=== PATIENT | female | born 1965 | race Caucasian/White ===

== ENCOUNTER 2022-09-18 08:52 | Emergency (ER) | payer OTHER ==
[~2022-09-18] VITALS: Ht 157.5 cm; Wt 59.0 kg
[~2022-09-18 08:52] MED LIST: GLUCOTROL10 MG PO; METFORMIN HYDRO25 GM MC
[2022-09-18] MEDS ORDERED: SYNJARDY 12.5-1 EACH PO (09:07)
[2022-09-18] MEDS ORDERED: JANUVIA25 MG PO (09:07)
[2022-09-18] MEDS ORDERED: ROSUVASTATIN CA40 MG PO (09:08)
[2022-09-18] MEDS ORDERED: PEPCID AC20 MG (09:09)
[2022-09-18] MEDS ORDERED: AFRIN15 ML NASAL (12:37)
[2022-09-18] MEDS ORDERED: ANTIVERT25 M2 PO (12:37)
== END 2022-09-18 12:40 | disposition home or self-care (01) ==
LOC: ER 08:52
DX: H81.10 Benign paroxysmal vertigo, unspecified ear (principal)

== ENCOUNTER 2023-09-27 13:22 | Inpatient (IN) | payer OTHER ==
[~2023-09-27] VITALS: Ht 160 cm; Wt 65.8 kg
[~2023-09-27 13:22] MED LIST changes: +AFRIN15 ML NASAL; +ANTIVERT25 M2 PO; +JANUVIA25 MG PO; +PEPCID AC20 MG; +ROSUVASTATIN CA40 MG PO; +SYNJARDY 12.5-1 EACH PO
[2023-09-27 19:45] LABS: HEMOGLOBIN 13.5 g/dL (12.0-15.00); MEAN CELL VOLUME 81.2 fL (80.00-100.00); MEAN CORPUSCULAR HGB CONC 34.5 g/dl (32.0-36.0); PLATELET COUNT 235 K/uL (150-450); RED CELL DISTRIBUTION WIDTH 13.2 % (11.5-14.5)
[2023-09-27 20:02] LABS: INR 1.04; PARTIAL THROMBOPLASTIN TIME 27.7 SECONDS (22.0-34.0); PROTHROMBIN TIME 10.9 SECONDS (9.0-11.5)
[2023-09-27 20:06] LABS: ALBUMIN 4.3 gm/dL (3.4-5.0); BILIRUBIN TOTAL 0.6 mg/dL (0.3-1.2); CALCIUM 9.8 mg/dL (8.5-10.1); CREATININE SERUM 0.68 mg/dL (0.55-1.02); GFR 88.87; GLOBULINA 3.8 G/DL (2.4-3.5); MAGNESIUM 1.7 mg/dL (1.8-2.4); PHOSPHOROUS 3.4 mg/dL (2.5-4.9); POTASSIUM 3.52 mEq/L (3.5-5.1); TOTAL PROTEIN 8.1 gm/dL (6.4-8.2)
[2023-09-27 21:09] LABS: PH,URINE 5.5 (5.0-8.0); URINE APPEARANCE Clear; URINE BILIRRUBIN Negative (NEGATIVE); URINE BLOOD Negative; URINE COLOR Yellow; URINE GLUCOSE Negative (NEGATIVE); URINE LEUKOCYTE Negative; URINE NITRATE Negative; URINE PROTEIN Negative (NEGATIVE)
[2023-09-27 21:15] LABS: URINE BACTERIA 21.4 uL (0.0-1933); URINE EPITHELIAL CELLS 6.6 uL (0.0-38.8); URINE RBC 1.7 uL (0.0-20.8); URINE WBC 10.7 uL (0.0-23.2)
[2023-09-28] MEDS ORDERED: CIPRO500 MG PO (12:04)
[2023-09-28] MEDS ORDERED: PERCOCET 5-3251 EACH PO (12:04)
[2023-09-28] MEDS ORDERED: ASA325 M1 PO (12:04)
== END 2023-09-28 18:53 | disposition home or self-care (01) | DRG 488 ==
LOC: ER 13:22 → SURH 18:18
PROVIDERS: General Practice; ADMIT Orthopaedic Surgery; ATTEND Orthopaedic Surgery
PROC: 0QUD0JZ Supplement Right Patella with Synthetic Substitute, Open Approach (ICD-10-PCS; 2023-09-28)
PROC: 0QSD04Z Reposition Right Patella with Internal Fixation Device, Open Approach (ICD-10-PCS; principal; 2023-09-28 12:30)
DX: S82.041A Displaced comminuted fracture of right patella, initial encounter for closed fracture (principal); M25.061 Hemarthrosis, right knee; S80.01XA Contusion of right knee, initial encounter; Z20.822 Contact with and (suspected) exposure to COVID-19; W01.198A Fall on same level from slipping, tripping and stumbling with subsequent striking against other object, initial encounter; Y93.9 Activity, unspecified; Y92.009 Unspecified place in unspecified non-institutional (private) residence as the place of occurrence of the external cause; Y99.9 Unspecified external cause status

== ENCOUNTER 2024-03-31 10:43 | Outpatient (CLI) | payer OTHER ==
[~2024-03-31 10:43] MED LIST changes: +ASA325 M1 PO; +CIPRO500 MG PO; +PERCOCET 5-3251 EACH PO
== END 2024-03-31 10:49 | disposition home or self-care (01) ==
LOC: RAD 10:43
PROVIDERS: ATTEND General Practice
DX: S92.351A Displaced fracture of fifth metatarsal bone, right foot, initial encounter for closed fracture (principal); M17.11 Unilateral primary osteoarthritis, right knee

== ENCOUNTER 2025-04-09 10:59 | Emergency (ER) | payer OTHER ==
[~2025-04-09] VITALS: Ht 162.6 cm; Wt 68.0 kg
[2025-04-09] MEDS ORDERED: KETOROLAC TROMETHAMINE 60 MG VIAL IM STA (12:14)
[2025-04-09] MEDS ORDERED: ACETAMINOPHEN 500 MG GEL..CAP PO STA (12:15)
[2025-04-09] MEDS ORDERED: KETOROLAC TROMETHAMINE 60 MG VIAL IM ONE (12:21)
[2025-04-09] MEDS ORDERED: ACETAMINOPHEN 500 MG GEL..CAP PO ONE (12:21)
== END 2025-04-09 14:38 | disposition home or self-care (01) ==
LOC: ER 10:59
DX: S80.02XA Contusion of left knee, initial encounter (principal); S50.12XA Contusion of left forearm, initial encounter; S90.31XA Contusion of right foot, initial encounter; W18.39XA Other fall on same level, initial encounter; Y93.89 Activity, other specified; Y92.018 Other place in single-family (private) house as the place of occurrence of the external cause; Y99.9 Unspecified external cause status; Z88.0 Allergy status to penicillin; Z88.8 Allergy status to other drugs, medicaments and biological substances

== ENCOUNTER 2025-05-15 13:56 | Emergency (ER) | payer OTHER ==
[~2025-05-15] VITALS: Ht 157.5 cm; Wt 53.5 kg
[2025-05-15] MEDS ORDERED: KETOROLAC TROMETHAMINE 10 MG TABLET PO STA (16:08)
== END 2025-05-15 18:16 | disposition home or self-care (01) ==
LOC: ER 13:56
DX: G89.11 Acute pain due to trauma (principal); M25.561 Pain in right knee; M79.641 Pain in right hand; M25.572 Pain in left ankle and joints of left foot; T07.XXXA Unspecified multiple injuries, initial encounter; Z88.0 Allergy status to penicillin; Z88.5 Allergy status to narcotic agent

== ENCOUNTER 2025-06-13 12:18 | Outpatient (CLI) | payer OTHER ==
[2025-06-26] MEDS ORDERED: BACTRIM DS TAB1 EACH PO (16:38)
== END 2025-06-13 12:19 | disposition home or self-care (01) ==
LOC: NUCLEAR 12:18
DX: M81.0 Age-related osteoporosis without current pathological fracture (principal)

== ENCOUNTER 2025-06-21 14:05 | Outpatient (CLI) | payer OTHER | END 2025-06-21 14:14 | disposition home or self-care (01) | LOC: RAD 14:05 | DX: H81.392 Other peripheral vertigo, left ear (principal); H91.8X2 Other specified hearing loss, left ear; S82.65XA Nondisplaced fracture of lateral malleolus of left fibula, initial encounter for closed fracture; X58.XXXA Exposure to other specified factors, initial encounter; Y93.9 Activity, unspecified; Y92.9 Unspecified place or not applicable; Y99.9 Unspecified external cause status ==

== ENCOUNTER 2025-07-27 11:18 | Outpatient (CLI) | payer OTHER ==
[~2025-07-27 11:18] MED LIST changes: +BACTRIM DS TAB1 EACH PO
== END 2025-07-27 11:20 | disposition home or self-care (01) ==
LOC: RAD 11:18
DX: S82.892S Other fracture of left lower leg, sequela (principal)